=== PATIENT | female | born 1980 | race Caucasian/White ===

== ENCOUNTER → 2017-01-12 | Outpatient (CLI) | payer BC ==
[~2017-01-12] MED LIST: GADOBUTROL 10mMol/10ml INJECTION IV ONE; IOTHALAMATE MEGLUMINE 60% (600mg/ml) 30ml INJ IV ONE; NORMAL SALINE 50 ML IV ONE
--- NOTE | 2017-01-12 16:02 | DI ---
Indication:ITS.REASON: S49.82XA Other specified injuries of left shoulder and upper arm, Procedure:ARTHROGRAM SHOULDER LT W/FL. SHOULDER INJECTION FOR MRI ARTHROGRAM: After discussing the details of the procedure, including the risks, the patient wished to proceed. Informed consent was obtained. A preprocedural timeout was performed to confirm the correct patient and procedure. Using aseptic technique, local lidocaine anesthetic, and fluoroscopic guidance throughout, a 22-gauge infiltrating needle was directed through the rotator cuff interval and into the joint of the left shoulder. A small amount of x-ray contrast was injected to confirm proper intra-articular placement of the needle tip. A fluoroscopic image was obtained. Following this, 8 cc of dilute gadolinium were slowly instilled within the joint of the left shoulder. The needle was removed. Following this, the patient was taken to MRI for her scan. Please see the separate MRI report. Impression: Technically successful left intra-articular shoulder joint injection for a MRI arthrogram. Fluoroscopy dose: 1.42 mGy (Cumulative air kerma) Salvador Mejia RPA/AYAD performed this under my personal supervision. .
--- NOTE | 2017-01-12 16:22 | DI ---
Indication: ITS.REASON: S49.82XA Other specified injuries of left shoulder and upper arm, PROCEDURE: MRI SHOULDER LEFT W/CONTRAST: Encounter: Initial Comparison: None Technique: Multiplanar multisequence MR imaging of the left shoulder was performed with intra-articular contrast. Arthrogram injection is described in a separate procedural report. Findings: The long head biceps tendon is intact and located within the bicipital groove. Subscapularis tendon is intact. The supraspinatus tendon is normal. The infraspinatus and teres minor tendons are normal. There is possible trace edema seen in the central aspect of the glenoid best seen on coronal image #9. This is a fairly subtle finding. Bone marrow signal intensity is otherwise normal. No acute fracture. Acromioclavicular joint appears normal. No labral tear identified. Cartilage appears maintained in the glenohumeral joint. No fluid or contrast in the subacromial subdeltoid bursa. Muscular signal intensity is normal. Impression: Possible small subacute bone contusion in the central glenoid, otherwise normal exam. .
== END ==
LOC: IMA 10:41
PROVIDERS: ATTEND Orthopaedic Surgery
DX: R93.7 Abnormal findings on diagnostic imaging of other parts of musculoskeletal system (principal); W19.XXXA Unspecified fall, initial encounter